=== PATIENT | female | born 1990 | race Caucasian/White ===

== ENCOUNTER 2018-05-06 16:55 | Inpatient (IN) | payer MEDICAID ==
[~2018-05-06] VITALS: Ht 157.5 cm; Wt 80.9 kg
[2018-05-06 17:28] VITALS: Ht 157.5 cm; Wt 80.9 kg
[2018-05-06] MEDS ORDERED: FERR325T5 PO (17:34)
[2018-05-06] MEDS ORDERED: PREN1TAB13 PO (17:34)
[2018-05-06] MEDS ORDERED: CALC600T24 PO (17:38)
[2018-05-06 17:39] VITALS: BP 140/89; PULSE 56; RESP 20
[2018-05-06] MEDS ORDERED: BUTORPHANOL 2 MG INJ IV PRN (18:00)
[2018-05-06] MEDS ORDERED: CARBOPROST 250 MCG INJ IM PRN (18:00)
[2018-05-06] MEDS ORDERED: METHYLERGONOVINE 0.2 MG INJ IM PRN (18:00)
[2018-05-06] MEDS ORDERED: OXYTOCIN 30 UNITS/LR 500 ML IV SCH (18:00)
[2018-05-06] MEDS ORDERED: LIDOCAINE 1% (MPF) 30 ML INJ INJ PRN (18:00)
[2018-05-06] MEDS ORDERED: MISOPROSTOL 200 MCG TAB PR PRN (18:00)
[2018-05-06] MEDS ORDERED: MINERAL OIL LIGHT 10 ML VIAL TOP PRN (18:00)
[2018-05-06] MEDS ORDERED: IBUPROFEN 600 MG TAB PO PRN (18:00)
[2018-05-06] MEDS ORDERED: OXYCODONE/ASPIRIN (4.88/325) TAB PO PRN (18:00)
[2018-05-06] MEDS ORDERED: OXYTOCIN 30 UNITS/LR 500 ML IV PRN (18:00)
[2018-05-06] MEDS: LACTATED RINGER'S 1,000 ML IV SCH (18:15)
[2018-05-06] MEDS ORDERED: MAGNESIUM SULFATE 20 GM/500 ML 500 ML IV SCH (22:43)
[2018-05-06] MEDS ORDERED: MAGNESIUM SULFATE 20 GM/500 ML 500 ML IV ONE (22:52)
[2018-05-06] MEDS ORDERED: MAGNESIUM SULFATE 4 GM/100 ML 100 ML ONE (22:52)
[2018-05-06] MEDS ORDERED: CA GLUCONATE (GM) 10% 10ML INJ IV PRN (23:00)
[2018-05-06] MEDS ORDERED: NACL 0.9% 3 ML SYG IV SCH (23:00)
[2018-05-06] MEDS ORDERED: MAGNESIUM SULFATE 4 GM/100 ML 100 ML IV SCH (23:00)
[2018-05-07] VITALS (13 sets, daily range): BP systolic 103–133; BP diastolic 61–78; PULSE 85–106; RESP 16–22
[2018-05-07] MEDS: LACTATED RINGER'S 1,000 ML IV SCH (01:43)
[2018-05-07] MEDS: OXYTOCIN 30 UNITS/LR 500 ML IV SCH ×2 (05:21→10:20)
--- NOTE | 2018-05-07 05:41 | LDN ---
Date/Time of Note Date/Time of Note DATE: 05/07/18 TIME: 05:39 Delivery Summary of normal female Weeks of Gestation 38w6d Placenta Delivered: Spontaneously Meconium: Light Episiotomy: No Perineal laceration: 2 Laceration repair: 00ch gut Anesthesia type: Local Estimated blood loss: 300 Sponge & Needle done & correct: Yes All needle counts correct: Yes Any foreign bodies felt in the: No Delivery Information Sex Infant Sex: female Apgars 1 Minute: 8 5 Minute: 9 Suctioning Nose & mouth suctioned at amberly: Yes Delee suction performed: Yes Umbilical Cord Umbilical cord with: 3 Vessels Cord presentations: no nuchal cord Cord Blood was obtained: Yes Mother & Baby Disposition Disposition Mom & Baby to Maternity; Good: Yes Mom transferred to: Other Baby to NICU: No () CAROLINE LUGO MD May 07, 2018 05:41
--- NOTE | 2018-05-07 06:04 | HP ---
Date/Time of Note Date/Time of Note DATE: 05/07/18 TIME: 05:48 OB - History Hx of Present Free Text/Dictation 27y.o primigravida was sent from clinic at 38w5d with high blood pressure and proteinuria in labor. Initial VE 3/100/-2 with bulging bag with BP 146/96 4+ proteinuria according to record her BP has been in normal range with trace protein in urine up until yesterday EFM revealed UC's 2-8min in strong intensity. GBS neg She was admitted for expectant management and placed on magnesium sulfate . Chief Complaint: uc's Estimated Due Date: May 15, 2018 : 1 Para: 0 Spontaneous : 0 Therapeutic : 0 Care: Good Care Ultrasounds: Normal mid trimester US Obstetrical Complications: None Medical Complications: None Past Family/Social History * Past Medical, Surgical, Family and Obstetric Histories reviewed from chart. Blood Type: O+ Rubella: immune RPR/VDRL: Negative GBS Status: Negative HBsAG: Negative OB Admission Exam Vital Signs Vital Signs Vital Signs Date Temp Pulse Resp B/P (MAP) Pulse Ox O2 O2 Flow FiO2 Time Delivery Rate 05/06/18 97.8 56 20 140/89 Room Air 17:39 (106) Physical Exam HEENT: WNL Heart: Rhythm Normal Lungs: Clear, Equal Abdomen: WNL Extremities: Normal Reflexes: Normal Cervical Dilatation: 3cm Effacement: 100% Station: -2 Membranes: Intact Amniotic Fluid: Unevaluable Heart Rate: 130's Accelerations: Accelerations Present Decelerations: No Decelerations Varibility: Moderate Contractions on Admission: < 5 Minutes Apart Frequency of Contractions: 2-8min Duration: 60 Intensity: Firm Last 72 hours Lab Results CBC & BMP 05/06/18 18:10 Liver Function Test 05/06/18 18:10 Alanine Aminotransferase (ALT/SGPT) 22 Albumin 3.7 Alkaline Phosphatase 288 H Aspartate Amino Transf (AST/SGOT) 28 Direct Bilirubin 0.00 Total Protein 7.3 OB Assessment/Plan Reason for admission: active labor Other Assessment: IUP 38w5d preeclampsia Plan: Expectant Management, Other (magnesium sulfate) CAROLINE LUGO MD May 07, 2018 05:59
[2018-05-07] MEDS: MAGNESIUM SULFATE 20 GM/500 ML 500 ML IV SCH ×2 (08:17→16:08)
[2018-05-07] MEDS ORDERED: CARBOPROST 250 MCG INJ IM PRN (09:00)
[2018-05-07] MEDS ORDERED: LANOLIN HPA 1 PKT TOP PRN (09:00)
[2018-05-07] MEDS ORDERED: OXYTOCIN 30 UNITS/LR 500 ML IV PRN (09:00)
[2018-05-07] MEDS ORDERED: MISOPROSTOL 200 MCG TAB PR PRN (09:00)
[2018-05-07] MEDS ORDERED: ZOLPIDEM 5 MG TAB PO PRN (09:00)
[2018-05-07] MEDS ORDERED: METHYLERGONOVINE 0.2 MG INJ IM PRN (09:00)
[2018-05-07] MEDS ORDERED: OXYCODONE/ASPIRIN (4.88/325) TAB PO PRN ×2 (09:00)
[2018-05-07] MEDS: WITCH HAZEL/GLYCERIN PAD PR PRN (10:17)
[2018-05-07] MEDS: SENNA/DOCUSATE NA (8.6MG/50MG) TAB PO SCH ×2 (10:17→21:00)
[2018-05-07] MEDS: BENZOCAINE 20% 56 ML SPRAY TOP PRN (10:18)
[2018-05-07] MEDS ORDERED: LACTATED RINGER'S 1,000 ML IV SCH (11:00)
[2018-05-07] MEDS: IBUPROFEN 600 MG TAB PO SCH ×2 (12:00→18:20)
[2018-05-08] VITALS (7 sets, daily range): BP systolic 105–132; BP diastolic 59–82; PULSE 76–91; RESP 17–22
[2018-05-08] MEDS: IBUPROFEN 600 MG TAB PO SCH ×5 (00:30→23:55)
[2018-05-08] MEDS: MAGNESIUM SULFATE 20 GM/500 ML 500 ML IV SCH (01:58)
[2018-05-08] MEDS: SENNA/DOCUSATE NA (8.6MG/50MG) TAB PO SCH ×2 (09:24→21:17)
--- NOTE | 2018-05-08 14:02 | DS ---
Date/Time of Note Date/Time of Note Home today or next day DATE: 05/08/18 TIME: 14:00 Obstetrical Discharge Record Final Diagnosis Final Diagnosis: Term delivered Other Final Diagnosis Status post vaginal delivery, -induced hypertension Vaginal Delivery Obstetrical Delivery: Spontaneous, Laceration, Repaired Complications Preg induced Hypertension Augmentation: No Induction: No Condition on Discharge Physical Assessment Last Vitals: See nurse's note Voiding: Yes Bowel Movement: Yes Breast: Soft, non-tender, Filling Fundus: Firm Abdomen and Incision: Abdomen is soft with firm fundus Episiotomy: Not applicable but perineum is clean Calf Tenderness: No Patient Condition: Good DONIS GLORIA MD May 08, 2018 14:02
--- NOTE | 2018-05-08 14:03 | PD.PPDC ---
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 Physician Information 27-year-old female had vaginal delivery Diagnosis [id number] Final Diagnosis: [id number] Status post vaginal delivery Condition [id number] Patient Condition: Bwroy7a Good Diet [id number] Diet: Gxvon3m Resume Regular Diet Activity/Restrictions [id number] Activity: Bqcfe3a Normal Activity May Shower [id number] Restrictions: Jyngo1g Nothing in the Vagina [id number] Return to Work or School: [id number] Jun 21, 2018 Follow-up Follow-up with Physician: 2, Week/Weeks (In clinic) Return to clinic for [id number] OB Instructions: [id number] Breast Tenderness Depression Blurried Vision Headache Comment: Pelvic rest for 6 weeks DONIS GLORIA MD May 08, 2018 14:03
[2018-05-08] MEDS ORDERED: IBUP-1542 PO (14:04)
[2018-05-08] MEDS: BENZOCAINE 20% 56 ML SPRAY TOP PRN (21:18)
[2018-05-09] MEDS: WITCH HAZEL/GLYCERIN PAD PR PRN (00:01)
[2018-05-09 04:00] VITALS: BP 104/58; PULSE 66; RESP 17
[2018-05-09] MEDS: IBUPROFEN 600 MG TAB PO SCH ×2 (05:40→12:18)
[2018-05-09] MEDS: SENNA/DOCUSATE NA (8.6MG/50MG) TAB PO SCH (08:41)
[2018-05-09] MEDS ORDERED: DIPHTH/TET/ACEL PERTUSS (ADULT) 0.5 ML VIAL IM* ONE (09:00)
[2018-05-09 09:08] VITALS: BP 126/87; PULSE 68; RESP 18
== END 2018-05-09 14:15 | disposition home or self-care (01) | DRG 807 ==
LOC: L-D 16:55 → PP1 05-07 08:46 → EDSTATUS 05-15 16:54
PROVIDERS: ADMIT Obstetrics & Gynecology; ATTEND Obstetrics & Gynecology
PROC: 10E0XZZ Delivery of Products of Conception, External Approach (ICD-10-PCS; principal; 2018-05-07)
PROC: 0HQ9XZZ Repair Perineum Skin, External Approach (ICD-10-PCS; 2018-05-07)
DX: O14.94 Unspecified pre-eclampsia, complicating childbirth (principal); Z37.0 Single live birth; O77.0 Labor and delivery complicated by meconium in amniotic fluid; O13.4 Gestational [pregnancy-induced] hypertension without significant proteinuria, complicating childbirth; O70.9 Perineal laceration during delivery, unspecified; Z3A.38 38 weeks gestation of pregnancy
CPT/HCPCS: 80053; 81001; 83735; 84560; 85025; 85610; 85730; 86592; 86850; 86900; 86901; 87340; 88307; 99464; J2590; J3475; J7120